=== PATIENT | female | born 1995 | race Caucasian/White ===

== ENCOUNTER 2018-08-08 13:39 | Inpatient (IN) ==
[2018-08-08] MEDS ORDERED: ceFAZolin SODIUM/DEXTROSE,ISO 2 GM/50 ML BAG IV ONE (13:44)
[2018-08-08] MEDS ORDERED: RINGER'S SOLUTION,LACTATED 1,000 ML IV PRN ×2 (13:44)
[2018-08-08] MEDS ORDERED: OXYTOCIN 20 UNITS in RINGER'S SOLUTION,LACTATED 1,000 ML IV ONE ×2 (13:44→15:50)
--- NOTE | 2018-08-08 14:01 | ANES ---
Anesthesia Pre Procedure Eval Vitals/Labs: Last Vital Signs Temp 36.1 C 08/08/18 13:46 Pulse 125 H 08/08/18 13:46 Resp 18 08/08/18 13:46 BP 120/77 08/08/18 13:46 Pulse Ox 98 08/08/18 13:46 HOME MEDICATIONS vitamins no.121-iron 28 mg-folic acid 800 mcg tablet 1 tab PO DAILY tab 01/01/18 [Last Taken 07/29/18 09:00] Allergies/Adverse Reactions: Allergies Allergy/AdvReac Type Severity Reaction Status Date / Time No Known Allergies Allergy Verified 08/08/18 13:44 - Planned Procedure Planned Procedure: Repeat Section Medication List Reviewed:: Yes Allergies Verified: Yes Medical History (Updated 07/24/18 @ 10:02 by Laura Resendiz MD) No pertinent past medical history Surgical History (Updated 01/01/18 @ 08:54 by Michelle Guardado LPN) History of section Onset Date: ~11/04/13 CPD-9# baby Family History (Updated 01/01/18 @ 08:55 by Michelle Guardado LPN) Mother Alive and well Father Alive and well - Family Anesthesia History Family History:: no untoward family reactions to anesthesia - Airway/Neck/Teeth Within Normal Limits:: Yes Teeth Condition: intact Neck Exam: full range of motion Mallampatti Score: 2 Thyromental (T-M) distance: > 6 cm Mandibulo Hyoid distance: > 3 cm - Respiratory Respiratory Physical: lungs clear Smoking Status: Never smoker Sleep Apnea currently treated: No Sleep Apnea by current assessment: No - Cardiovascular Tolerate Activity: Good Heart Sounds: S1 & S2, Regular - Anesthesia Assessment and Plan ASA Class: PS, II, E Anesthesia Type Plan: Spinal - TAP block for postop analgesia
--- NOTE | 2018-08-08 14:08 | PN ---
Progess Note - Interim Date: 08/08/18 Time: 14:07 Narrative: 08/08/18 14:07 Please refer to H&P in clinic note The patient was scheduled for delivery on 08/13/2018 but she is active labor so will proceed with delivery due to active labor. All risks, benefits, and alternatives of the procedure were explained to the patient and the patient consented to the procedure. Informed consent obtained previously
--- NOTE | 2018-08-08 15:42 | ANES ---
Post Anesthesia Discharge - Transfer of Care Transfer of Care handoff given to nurse: Yes - Discharge from PACU Discharge from PACU when meets criteria: Yes
--- NOTE | 2018-08-08 15:42 | ANES ---
Post Anesthesia Assessment - Vital Signs Vitals: Last Vital Signs Temp 36.1 C 08/08/18 14:00 Pulse 98 08/08/18 14:00 Resp 18 08/08/18 14:00 BP 125/74 08/08/18 14:00 Pulse Ox 98 08/08/18 14:00 Airway Patency: Normal - Mental Status Level Of Consciousness: Awake - Pain Level Pain Score: 2 - N/V Assessment Nausea/Vomiting Presence: None Dehydration:: No
--- NOTE | 2018-08-08 15:45 | ANES ---
Anesthesia Procedure Note Procedure Note: ANESTHESIA PROCEDURE NOTE Date of procedure: 08/08/2018. Time of procedure: 1530. Performed by: Cullen Olivera CRNA Media Liaison Officer: Marybel Garza RN . Preprocedure diagnosis: Previous . Desire for postoperative analgesia. Post procedure diagnosis: Same. Procedure: Ultrasound-guided bilateral tap block Indications: Postoperative analgesia. Findings: Patient placed in the supine position in the PACU. Patient's right lateral abdominal wall prepped with ChloraPrep. Ultrasound utilized to identify the fascial layer between the internal oblique and trans-abdominus muscles. A 20-gauge 4 inch regional block needle was advanced under ultrasound guidance until the tip of needle was placed just posterior to fascial layer. 20 mL of 0.25% Marcaine with epinephrine 1 200,000 was injected for adequate spread of local anesthesia noted. Procedure was then repeated on patient's left side. EBL: Minimal. Fluids: N/A. Specimen: N/A. Post procedure condition: The patient tolerated the procedure well. No complications were noted. Thank you for this consultation Cullen Olivera CRNA
[2018-08-08] MEDS ORDERED: diphenhydrAMINE HCL 25 MG CAPSULE PO PRN (15:50)
[2018-08-08] MEDS ORDERED: SENNOSIDES 8.6 MG TABLET PO PRN (15:50)
[2018-08-08] MEDS ORDERED: HYDROcodone/ACETAMINOPHEN 1 EACH TABLET PO PRN (15:50)
[2018-08-08] MEDS ORDERED: RINGER'S SOLUTION,LACTATED 1,000 ML IV ONE (15:50)
[2018-08-08] MEDS ORDERED: BISACODYL 10 MG SUPP.RECT RC PRN (15:50)
[2018-08-08] MEDS ORDERED: ONDANSETRON HCL/PF 2 MG/ML VIAL IV PRN (15:50)
[2018-08-08] MEDS ORDERED: SIMETHICONE 80 MG TAB.CHEW PO PRN (15:50)
--- NOTE | 2018-08-08 15:50 | OR ---
Operative Report - Dictated Report Narrative: Preoperative diagnosis: IUP @ 38w 3d, active labor, repeat delivery Postoperative diagnosis: same Procedure: repeat delivery Surgeon: Dr. Resendiz Anesthesia: spinal Anesthesiologist: Cullen Olivera CRNA Date of delivery: 08/08/2018 Time of delivery: 1438 Gender: male APGARS: 8/9 weight: 4171 grams Description of the procedure: The patient was taken to the operating room where spinal anesthesia was induced without difficulty. She was then prepped and draped in the supine position in the standard surgical fashion. A Pfannestiel skin incision was made. The incision was carried through the subcutaneous tissue. The fascia was incised in the midline. In the midline there was a defect in the fascia and the peritoneum was seen with the bowel underlying the peritoneum. The fascia was from the underlying rectus muscles. The peritoneum was entered bluntly. A large Clive retractor was placed. The lower uterine segment was very thin. The lower uterine segment was incised in a lower transverse fashion with part of the incision going through an anterior placenta. The membranes were ruptured and clear fluid was noted. The head was delivered without difficulty. The rest of the body was delivered atraumatically. The cord was clamped and cut and the infant was handed off to the attending pediatric staff. The placenta was removed by placing my hand in the uterus as the placenta was pulling on the uterus and otherwise there would have been a uterine inversion. There were trailing membranes which were removed with care to remove all remaining membranes. The uterus was cleared of all clots and debris. The uterine incision was closed with a single layer of 0-vicryl. An additional figure of eight suture was placed in the left corner of the incision for additional hemostasis. Hemostasis was adequate. The uterine incision was inspected several times for hemostasis. The Clive manipulator was removed. The fascia was inspected as were the rectus muscles for hemostasis. The fascia was closed with 1-0 vicryl. The subcutaneous tissue's space was closed with 2-0 vicryl. The skin incision was closed with 3-0 monocryl on a Mart needle. All sponge, lap, and needle counts were correct. The patient tolerated the procedure well. She was transferred to the recovery room in stable condition. EBL: 1000 mL Complications: none Specimens: none History for MU Definition: * The number of deliveries resulting in a live the patient experienced prior to current hospitalization * The previous delivery of live twins or any live multiple gestation is considered one live event. *If primagravida or nulliparous is documented select zero for the number of previous live births. Live Events: 1
[2018-08-08] MEDS: KETOROLAC TROMETHAMINE 30 MG/ML VIAL IV PRN (16:22)
[2018-08-08] MEDS: HYDROcodone/ACETAMINOPHEN 1 EACH TABLET PO PRN ×2 (16:23→21:05)
[2018-08-08 17:26] LABS: Cocaine Ur Negative (NEGATIVE); Urine Barbiturate Negative (NEGATIVE); Urine Benzodiazepines Negative (NEGATIVE); Urine Opiates Negative (NEGATIVE); Urine PCP Negative (NEGATIVE); Urine THC Negative (NEGATIVE)
[2018-08-08] MEDS: DOCUSATE SODIUM 100 MG CAPSULE PO SCH (21:10)
[2018-08-09] MEDS: HYDROcodone/ACETAMINOPHEN 1 EACH TABLET PO PRN ×4 (01:03→19:22)
[2018-08-09] MEDS: KETOROLAC TROMETHAMINE 30 MG/ML VIAL IV PRN ×2 (01:03→09:07)
--- NOTE | 2018-08-09 08:01 | PN ---
Subjective - Date and Time Seen Date: 08/09/18 Time: 08:00 Subjective Narrative: Pt without complaints Objective Objective Narrative: See vital signs - Review of Systems Generalized/Overall Review: Reports: No Symptoms Reported Misc: All systems neg except as marked - Vitals Vitals: Last Vital Signs Temp 36.1 C 08/09/18 01:05 Pulse 80 08/09/18 01:05 Resp 18 08/09/18 01:05 BP 126/79 08/09/18 01:05 Pulse Ox 99 08/09/18 01:05 - Exam Constitutional: Present: Alert, Oriented x3, Cooperative, No distress Abdomen: Present: soft, nontender, nondistended Extremity: Present: non-tender, no calf tenderness Skin Exam: Present: normal color, warm/dry, no cyanosis Appearance: Present: appropriate appearance Eye contact: Present: cooperative Thoughts: Present: normal thought pattern Cauti Physician Documentation - Urinary Catheter Management Urethral ([place]) Urethral Indwelling: No Date of Insertion: 08/08/18 Date of Removal: 08/09/18 Time of Removal: 03:30 Assessment/Plan Plan Narrative: POD 1 s/p repeat delivery Doing well Incision clean, dry, and intact
[2018-08-09] MEDS: DOCUSATE SODIUM 100 MG CAPSULE PO SCH ×2 (09:07→21:00)
[2018-08-09] MEDS: IBUPROFEN 800 MG TABLET PO PRN (19:22)
[2018-08-10] MEDS: IBUPROFEN 800 MG TABLET PO PRN (07:37)
[2018-08-10] MEDS: HYDROcodone/ACETAMINOPHEN 1 EACH TABLET PO PRN (07:37)
[2018-08-10 07:53] VITALS: BP 117/77
[2018-08-10] MEDS: DOCUSATE SODIUM 100 MG CAPSULE PO SCH (09:42)
--- NOTE | 2018-08-10 10:12 | PN ---
Subjective - Date and Time Seen Date: 08/10/18 Time: 10:11 Subjective Narrative: Pt without complaints Objective Objective Narrative: See vital signs - Review of Systems Generalized/Overall Review: Reports: No Symptoms Reported Misc: All systems neg except as marked - Vitals Vitals: Last Vital Signs Temp 36.5 C 08/10/18 07:48 Pulse 88 08/10/18 07:48 Resp 18 08/10/18 07:48 BP 117/77 08/10/18 07:48 Pulse Ox 99 08/10/18 07:48 - Exam Constitutional: Present: Alert, Oriented x3, Cooperative, No distress Abdomen: Present: soft, nontender, nondistended - incision c/d/i Extremity: Present: non-tender, no calf tenderness Skin Exam: Present: normal color, warm/dry, no cyanosis Appearance: Present: appropriate appearance Eye contact: Present: cooperative Thoughts: Present: normal thought pattern Cauti Physician Documentation - Urinary Catheter Management Urethral ([place]) Urethral Indwelling: No Date of Insertion: 08/08/18 Date of Removal: 08/09/18 Time of Removal: 03:30 Assessment/Plan Plan Narrative: POD 2 s/p repeat delivery Doing well Discharge home
== END 2018-08-10 12:15 | disposition home or self-care (01) | DRG 788 ==
LOC: OB 13:39
PROVIDERS: ADMIT Obstetrics & Gynecology; ATTEND Obstetrics & Gynecology
CPT/HCPCS: 59025; 80307; 86850